=== PATIENT | male | born 2000 | race African-American/Black ===

== ENCOUNTER 2022-05-23 23:49 | Emergency (ER) | payer OTHER, SELFPAY ==
[2022-05-24] MEDS ORDERED: ACETAMINOPHEN 325 MG TABLET ONE (00:43)
[2022-05-24 05:37] VITALS: TEMP 99.3
[2022-05-24 05:39] VITALS: O2SAT 100
[2022-05-24 05:41] VITALS: BP 112/68
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
== END 2022-05-24 02:58 | disposition home or self-care (01) ==
LOC: ER 23:49
DX: M54.50 Low back pain, unspecified (principal); M25.552 Pain in left hip; V49.59XA Passenger injured in collision with other motor vehicles in traffic accident, initial encounter
CPT/HCPCS: 72100; 72170; 99283

== ENCOUNTER 2023-03-08 21:59 | Emergency (ER) | payer OTHER ==
[2023-03-08] MEDS ORDERED: ONDANSETRON 4 MG (ODT) TAB ONE (22:11)
[2023-03-08] MEDS ORDERED: ONDANSETRON 4 MG/2 ML VIAL ONE (22:31)
[2023-03-08] MEDS ORDERED: NA CHLORIDE 0.9% 1,000 ML ONE (22:31)
[2023-03-08 23:04] LABS: Protime INR 1.18
[2023-03-08 23:13] LABS: Absolute Lymphocytes (CBC) 2.7 K/uL (0.7-4.9); Hematocrit 45.7 % (39.6-49.0); Lymphocytes % 32.3 % (15.3-44.8); MCV 87.7 fL (80-100); MPV 8.9 fL (7.6-11.3); RBC Red Blood Cell Count 5.21 M/uL (4.33-5.43)
[2023-03-08 23:22] LABS: ALT/SGPT 24 U/L (16-61); AST/SGOT 14 U/L (15-37); Albumin 4.3 g/dL (3.4-5.0); Alkaline Phosphatase 80 U/L (45-117); BUN Blood Urea Nitrogen 12 mg/dL (7-18); Bicarbonate 28 mEq/L (21-32); Bilirubin Direct 0.3 mg/dL (0-0.2); Bilirubin Indirect, Calculated 1.7 mg/dL (0.2-0.8); Glomerular Filtration Rate 96 ml/min (=/>90); Glucose Level 117 mg/dL (74-106); Potassium 3.4 mEq/L (3.5-5.1); Protein, Total 7.6 g/dL (6.4-8.2); Sodium Level 140 mEq/L (136-145)
[2023-03-08] MEDS ORDERED: POTASSIUM 25 MEQ EFFERV TAB ONE (23:44)
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
--- NOTE | 2023-03-09 01:29 | EDPHYS ---
Physician Documentation [facility] Name: Lupe Pires Age: 23 yrs Sex: Male : 2000 Arrival Date: 03/08/2023 Time: 21:59 Bed 18 Private MD: ED Physician Sacha Giron HPI: 03/08 22:05 This 23 yrs old Black Male presents to ER via EMS with complaints of Accidental cp Overdose. 22:05 Patient is a 23-year-old male brought to the emergency department by EMS after cp suspected overdose. Patient was found by friend unresponsive. Police were called and administered 4 mg of Narcan. EMS reports patient was slow to respond so he was given an additional 2 mg of Narcan. Patient is alert x3 but uncooperative and will not divulge taking any medications at this time. 23:30 Patient denies suicidal ideation. cp Historical: - Allergies: 22:17 No Known Allergies; vc1 - Home Meds: 22:17 None [Active]; vc1 - PMHx: 22:17 None; vc1 - PSHx: 22:17 None; vc1 - Immunization history:: Client reports having NOT received the Covid vaccine. - Social history:: Smoking status: Reported history of juuling and/or vaping. ROS: 22:10 Constitutional: Negative for body aches, chills, fever, poor PO intake. cp 22:10 Respiratory: Negative for cough, shortness of breath, wheezing. cp 22:10 Abdomen/GI: Negative for abdominal pain, nausea, vomiting, and diarrhea. 22:10 Eyes: Negative for injury, pain, redness, and discharge. cp 22:10 ENT: Negative for drainage from ear(s), ear pain, sore throat, difficulty swallowing, difficulty handling secretions. 22:10 Cardiovascular: Negative for chest pain, edema, palpitations. 22:10 Back: Negative for pain at rest, pain with movement. 22:10 Neuro: Negative for altered mental status, dizziness, headache, weakness. 22:10 All other systems are negative. Exam: 22:15 Constitutional: The patient appears in no acute distress, alert, awake, cp non-diaphoretic, non-toxic, well developed, well nourished. 22:15 Head/Face: Normocephalic, atraumatic. cp 22:15 Eyes: Periorbital structures: appear normal, Pupils: equal, round, and reactive to light and accomodation, Extraocular movements: intact throughout, Conjunctiva: normal, no exudate, no injection, Sclera: no appreciated abnormality, Lids and lashes: appear normal, bilaterally. 22:15 ENT: External ear(s): are unremarkable, Nose: is normal, Mouth: Lips: moist, Oral mucosa: normal, Posterior pharynx: is normal, airway is patent, no erythema, no exudate. 22:15 Neck: ROM/movement: is normal, is supple, without pain, no range of motions limitations, no meningismus. 22:15 Chest/axilla: Inspection: normal. 22:15 Cardiovascular: Rate: normal, Rhythm: regular. 22:15 Respiratory: the patient does not display signs of respiratory distress, Respirations: normal, no use of accessory muscles, no retractions, labored breathing, is not present, Breath sounds: are clear throughout, no decreased breath sounds, no stridor, no wheezing. 22:15 Abdomen/GI: Inspection: abdomen appears normal, Palpation: abdomen is soft and non-tender, in all quadrants. 22:15 Back: pain, is absent, ROM is normal. 22:15 Neuro: Orientation: to person, place \T\ time. Mentation: is normal, Cerebellar function: is grossly normal, Motor: moves all fours, strength is normal, Sensation: is normal. 22:21 ECG was reviewed by the Attending Physician. cp Vital Signs: 22:13 BP 133 / 77; Pulse 90; Resp 12; Temp 98.9; Pulse Ox 100% on R/A; Weight 68.04 kg; vc1 Height 5 ft. 11 in. ; Pain 0/10; 22:45 BP 138 / 78; Pulse 72; Resp 14; Pulse Ox 100% ; vc1 23:15 BP 145 / 70; Pulse 63; Resp 14; Pulse Ox 100% on R/A; vc1 03/09 00:00 BP 145 / 82; Pulse 70; Resp 13; Pulse Ox 99% ; vc1 01:00 BP 122 / 59; Pulse 50; Resp 12; Pulse Ox 100% ; vc1 03/08 22:13 Body Mass Index 20.92 (68.04 kg, 180.34 cm) 1 03/08 22:13 Pain Scale: Adult vc1 MDM: 03/08 22:05 Patient medically screened. cp 23:00 Differential diagnosis: polypharmacy, over medication, hypoglycemia, closed head cp injury, intracranial hemorrhage. 03/09 01:27 Data reviewed: vital signs, nurses notes, lab test result(s), EKG, radiologic studies, cp plain films. 01:27 Consideration of Admission/Observation Escalation of care including cp admission/observation considered. I considered the following discharge prescriptions or medication management in the emergency department Medications were administered in the Emergency Department. See MAR. Counseling: I had a detailed discussion with the patient and/or guardian regarding: the historical points, exam findings, and any diagnostic results supporting the discharge/admit diagnosis, lab results, radiology results, to return to the emergency department if symptoms worsen or persist or if there are any questions or concerns that arise at home. Response to treatment: the patient's symptoms have markedly improved after treatment, VSS. No signs of respiratory distress at this time. Patient requesting discharge to home, and as a result, I will discharge patient. 03/08 22:05 Order name: Acetaminophen; Complete Time: 23:32 03/08 22:05 Order name: Basic Metabolic Panel; Complete Time: 23:32 03/08 23:32 Interpretation: Normal except: K 3.4; CL 108; GLUC 117. 03/08 22:05 Order name: CBC with Diff; Complete Time: 23:32 03/08 22:05 Order name: ETOH Level; Complete Time: 23:32 03/08 22:05 Order name: Hepatic Function; Complete Time: 23:32 03/08 22:05 Order name: PT-INR; Complete Time: 23:32 03/08 22:05 Order name: Ptt, Activated; Complete Time: 23:32 03/08 22:05 Order name: Salicylate; Complete Time: 23:32 03/08 22:05 Order name: XRAY Chest (1 view) 03/08 22:05 Order name: EKG; Complete Time: 22:05 03/08 22:05 Order name: EKG - Nurse/Tech; Complete Time: 22:22 03/08 22:05 Order name: IV Saline Lock; Complete Time: 22:22 03/08 22:05 Order name: Labs collected and sent; Complete Time: 22:22 cp 03/08 22:05 Order name: Suicide Screening ([place]); Complete Time: : cp EC/17 22:21 Rate is 78 beats/min. Rhythm is regular. FL interval is normal. QRS interval is cp prolonged at 122 msec. QT interval is normal. T waves are Inverted in lead aVR. Interpreted by me. Reviewed by me. Administered Medications: 22:12 Drug: Ondansetron PO 4 mg Route: PO; vc1 22:33 Follow up: Response: Vomiting unchanged vc1 22:33 Drug: NS 0.9% IV 1000 ml Route: IV; Rate: 500 ml/hr; Site: right antecubital; vc1 22:33 Drug: Ondansetron IVP 4 mg Route: IVP; Site: right antecubital; vc1 23:03 Follow up: Response: No adverse reaction; Marked relief of symptoms vc1 23:54 Drug: Potassium PO Effervescent Tablet 50 mEq Route: PO; vc1 Disposition Summary: 03/09/23 01:28 Discharge Ordered Location: Home cp Problem: new cp Symptoms: have improved cp Condition: Stable cp Diagnosis - Hypokalemia cp - Nausea with vomiting, unspecified cp - Poisoning by other narcotics, accidental (unintentional), initial encounter cp Followup: cp - With: Private Physician - When: 1 - 2 days - Reason: Recheck today's complaints Discharge Instructions: - Discharge Summary Sheet cp - Potassium Content of Foods cp - Opioid Overdose cp - Nausea and Vomiting, Adult cp - Hypokalemia cp Forms: - Medication Reconciliation Form cp - Thank You Letter cp - Antibiotic Education cp - Prescription Opioid Use cp Prescriptions: - Zofran 4 mg Oral Tablet - take 1 tablet by ORAL route every 12 hours As needed; 20 tablet; Refills: 0, cp Product Selection Permitted Signatures: Dispatcher [employer] EDMS Rosales Oneill PA PA cp Tracy Kirkland RN RN vc1
[2023-03-09 01:40] VITALS: TEMP 98.9
[2023-03-09 01:47] VITALS: BP 122/59; O2SAT 100
--- NOTE | 2023-03-09 05:36 | EKG ---
Test Date: 2023-03-08 Test Time: 22:15:55 Guide [place]: RV MEASUREMENT RESULTS: Intervals: Rate: 78 IN: 178 QRSD: 122 QT: 368 QTc: 419 [place]: P: 65 IN: 178 QRS: 108 T: 57 INTERPRETIVE STATEMENTS: Normal sinus rhythm Rightward axis RSR' or QR pattern in V1 suggests right ventricular conduction delay Borderline ECG No previous ECG available for comparison Electronically Signed On 03-09-23 05:36:22 CDT by Daniel Castillo
--- NOTE | 2023-03-09 17:51 | RAD REPORT ---
EXAM DESCRIPTION: RAD - Chest Single View - 03/08/2023 10:37 pm CLINICAL HISTORY: 3 years Male, SOB COMPARISON: None FINDINGS: No focal lung consolidation. No pleural effusion. No pneumothorax. Cardiomediastinal silhouette is within normal limits. No acute osseous abnormality. IMPRESSION: No acute cardiopulmonary disease. Electronically signed by: Alessio Echeverria DO 03/08/2023 11:04 PM CDT Due to temporary technical issues with the PACS/Fluency reporting system, reports are being signed by the in house radiologists without review as a courtesy to insure prompt reporting. The interpreting radiologist is fully responsible for the content of the report.
== END 2023-03-09 01:35 | disposition home or self-care (01) ==
LOC: ER 21:59
DX: E87.6 Hypokalemia (principal); T40.691A Poisoning by other narcotics, accidental (unintentional), initial encounter
CPT/HCPCS: 93005; 85025; 80048; 36415; 85610; 80076; 85730; 71045; 96374; 99285; Q0162; J2405; J7030; G0480 ×3